=== PATIENT | female | born 1960 ===

== ENCOUNTER → 2018-11-29 21:18 | Outpatient (REF) | payer OTHER, SELFPAY ==
[2018-11-29 22:12] LABS: Alanine Aminotransferase 43 IU/L (9-52); Albumin 4.5 g/dL (3.5-5.0); Albumin Globulin Ratio 1.6 (1.0-2.8); Alkaline Phosphatase 77 U/L (38-126); Aspartate Aminotransferase 39 IU/L (14-36); BUN Creatinine Ratio 16.3 (6-22); Bilirubin Total 0.4 mg/dL (0.2-1.3); Blood Urea Nitrogen 13 mg/dL (7-17); Calcium 9.7 mg/dL (8.4-10.2); Carbon Dioxide 30 mmol/L (22-32); Chloride 101 mmol/L (98-107); Cholesterol 258 mg/dL (140-199); Estimated Glomerular Filt Rate > 60.0 mL/min (>60); Globulin 2.9 g/dL (1.7-4.1); Glucose 88 mg/dL (70-100); HDL Cholesterol 99 mg/dL (40-60); HEMOLYSIS < 15 (0-50); LDL Cholesterol Calculated 145 mg/dL (<100); Potassium 4.5 mmol/L (3.4-5.1); Sodium 141 mmol/L (137-145); Total Protein 7.4 g/dL (6.3-8.2); Triglycerides 71 mg/dL (35-150)
[2018-11-29 23:33] LABS: Hemoglobin A1C% w Est Avg Glu 5.7 % (4.0-6.0)
[2018-11-29 23:44] LABS: Thyroid Stimulating Hormone 0.03 uIU/mL (0.47-4.68)
[2018-11-30 08:27] LABS: Free T3, Triiodothyronine Free 3.78 pg/mL (2.77-5.27); Free T4, Direct Thyroxine 1.42 ng/dL (0.78-2.19)
== END ==
LOC: LAB 21:18
PROVIDERS: Visit Provider Naturopath
DX: E03.9 Hypothyroidism, unspecified (principal); E78.5 Hyperlipidemia, unspecified
CPT/HCPCS: 36415; 80053; 80061; 83036; 84439; 84443; 84481

== ENCOUNTER → 2019-03-25 21:27 | Outpatient (REF) | payer OTHER, SELFPAY ==
[2019-03-25 23:15] LABS: Alanine Aminotransferase 36 IU/L (9-52); Albumin 4.4 g/dL (3.5-5.0); Albumin Globulin Ratio 1.6 (1.0-2.8); Alkaline Phosphatase 73 U/L (38-126); Aspartate Aminotransferase 37 IU/L (14-36); Bilirubin Total 0.4 mg/dL (0.2-1.3); Blood Urea Nitrogen 12 mg/dL (7-17); Calcium 9.4 mg/dL (8.4-10.2); Carbon Dioxide 29 mmol/L (22-32); Chloride 99 mmol/L (98-107); Cholesterol 233 mg/dL (140-199); Estimated Glomerular Filt Rate > 60.0 mL/min (>60); Globulin 2.8 g/dL (1.7-4.1); Glucose 102 mg/dL (70-100); HDL Cholesterol 95 mg/dL (40-60); HEMOLYSIS < 15 (0-50); LDL Cholesterol Calculated 126 mg/dL (<100); Potassium 4.5 mmol/L (3.4-5.1); Sodium 137 mmol/L (137-145); Total Protein 7.2 g/dL (6.3-8.2); Triglycerides 58 mg/dL (35-150)
[2019-03-26 04:45] LABS: Free T3, Triiodothyronine Free 3.93 pg/mL (2.77-5.27); Free T4, Direct Thyroxine 1.67 ng/dL (0.78-2.19)
[2019-03-26 04:58] LABS: Thyroid Stimulating Hormone 0.85 uIU/mL (0.47-4.68)
== END ==
LOC: LAB 21:27
PROVIDERS: Visit Provider Naturopath
DX: F50.81 Binge eating disorder (principal); E03.9 Hypothyroidism, unspecified; E78.5 Hyperlipidemia, unspecified
CPT/HCPCS: 36415; 80053; 80061; 84439; 84443; 84481